=== PATIENT | male | born 1985 | race African-American/Black ===

== ENCOUNTER 2016-03-03 21:39 | Emergency (ER) | payer OTHER ==
[2016-03-03 22:15] VITALS: BP 118/66; PULSE 75; TEMP 98.3; BMI 26.3
[2016-03-03] MEDS ORDERED: IBUPROFEN 400 MG TABLET (FP) PO ONE ×2 (23:06→23:32)
[2016-03-03] MEDS ORDERED: OXYCODONE/APAP 5/325MG COMBO TABLET PO ONE (23:06)
[2016-03-03] MEDS ORDERED: OXYCODONE/APAP 5/325MG COMBO TABLET ONE (23:32)
--- NOTE | 2016-03-04 00:32 | PDOC ---
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 Patient reports hx chronic neck pain. Denies trauma, injury, fall or any other complaints at this time. Timing/Duration: other (Just prior to arrival) Severity: mild Modifying Factors: improves with: rest Associated Symptoms: denies: denies symptoms, chest pain, cough, diaphoresis, fever/chills, headaches, loss of appetite, malaise, nausea/vomiting, rash, seizure, shortness of breath, syncope, weakness, other Aspirin Received prior to arrival: No: no aspirin today, unknown, 81 mg x 1, 81 mg x 2, 81 mg x 3, 81 mg x 4, 325 mg x 1, provided at home, provided by EMS, provided by [facility] Contraindications(Core Measure): No: Allergy, Other, Active Blding w/i 24 hrs., Plavix, Receiving Warfarin Past History - Travel Traveled outside of the country in the last 30 days: No Close contact w/someone who was outside of country & ill: No - Past Medical History Allergies/Adverse Reactions: Allergies Allergy/AdvReac Type Severity Reaction Status Date / Time No Known Allergies Allergy Verified 03/03/16 22:11 Home Medications: Ambulatory Orders Ibuprofen [Motrin -] 600 mg PO TID #21 tablet 12/08/14 Ibuprofen [Motrin -] 600 mg PO Q6H PRN #20 tablet 03/04/16 Methocarbamol [Robaxin -] 500 mg PO Q6H PRN #20 tablet 03/04/16 Oxycodone HCl/Acetaminophen [Percocet 5-325 mg Tablet] 1 tab PO Q6H PRN #16 tablet MDD 4 tabs 03/04/16 Other medical history: Denies - Immunization History Immunization Up to Date: Yes - Psycho/Social/Smoking Cessation Hx Anxiety: No Suicidal Ideation: No Smoking History: Never smoked Have you smoked in the past 12 months: No Information on smoking cessation initiated: No Hx Alcohol Use: No Drug/Substance Use Hx: No Substance Use Type: Alcohol Review of Systems - Review of Systems Able to Perform ROS?: Yes Is the patient limited Angolan proficient: No Constitutional: No: Chills, Fever HEENTM: No: Blurred Vision, Double Vision Respiratory: No: Cough, Orthopnea, Shortness of Breath Cardiac (ROS): No: Chest Pain, Palpitations, Syncope, Chest Tightness ABD/GI: No: Constipated, Diarrhea, Nausea, Vomiting : No: Burning, Dysuria, Discharge, Flank Pain, Hematuria Musculoskeletal: Yes: Neck Pain. No: Back Pain Integumentary: No: Bruising, Rash, Sweating Neurological: No: Headache, Numbness, Paresthesia, Seizure, Tingling, Tremors, Weakness, Ataxia, Dizziness All Other Systems: Reviewed and Negative *Physical Exam - Vital Signs Last Vital Signs Temp Pulse Resp BP Pulse Ox 98.3 F 75 16 118/66 96 03/03/16 22:12 03/03/16 22:12 03/03/16 22:12 03/03/16 22:12 03/03/16 22:12 - Physical Exam General Appearance: Yes: Nourished, Appropriately Dressed. No: Apparent Distress, Mild Distress, Moderate Distress, Severe Distress HEENT: positive: EOMI, LEV, Normal Voice, Symmetrical Neck: positive: Trachea midline, Supple. negative: Decreased range of motion, Stridor, Lymphadenopathy (R), Lymphadenopathy (L) Respiratory/Chest: positive: Lungs Clear, Normal Breath Sounds. negative: Labored Respiration, Decreased Breath Sounds Cardiovascular: positive: Regular Rhythm, Regular Rate Gastrointestinal/Abdominal: positive: Normal Bowel Sounds, Soft Lymphatic: negative: Adenopathy Musculoskeletal: positive: Normal Inspection. 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[employer] II-XII NML intact, Fully Oriented, Alert, Normal Mood/ Affect, Normal Response, Motor Strength 5/5 ED Treatment Course - RADIOLOGY Radiology Studies Ordered: Category Date Time Status SPINE-CERVICAL [RAD] Stat Radiology 03/03/16 23:05 Taken - Medications Given in the ED: ED Medications Discontinued Medications Generic Name Dose Route Start Last Admin Trade Name Freq PRN Reason Stop Dose Admin Ibuprofen 800 mg 03/03/16 23:06 03/04/16 00:13 Motrin - PO 03/03/16 23:07 800 mg ONCE ONE Administration Oxycodone/Acetaminophen 1 combo 03/03/16 23:06 03/04/16 00:13 Percocet 5/325 - PO 03/03/16 23:07 1 combo ONCE ONE Administration *DC/Admit/Observation/Transfer Diagnosis at time of Disposition: Cervical pain (neck) - Discharge Dispostion Disposition: HOME Condition at time of disposition: Stable Admit: No - Prescriptions Prescriptions: Ibuprofen [Motrin -] 600 mg PO Q6H PRN #20 tablet PRN Reason: Mild Pain Oxycodone HCl/Acetaminophen [Percocet 5-325 mg Tablet] 1 tab PO Q6H PRN #16 tablet MDD 4 tabs PRN Reason: Severe Pain Methocarbamol [Robaxin -] 500 mg PO Q6H PRN #20 tablet PRN Reason: Neck pain - Referrals Referrals: STAFF,NOT ON [Primary Care Provider] - Dc Cote MD [Non Staff, Medical] - - Patient Instructions Printed Discharge Instructions: DI for Neck Pain Additional Instructions: FOLLOW UP WITH DR COTE OR YOUR PRIMARY CARE PROVIDER FOR FURTHER EVALUATION. APPLY WARM COMPRESS TO AFFECTED AREA NEEDED. TAKE MEDICATIONS PRESCRIBED. DO NOT DRIVE, DRINK ALCOHOL, OR OPERATE HEAVY MACHINERY WHILE TAKING PERCOCET. Print Language: LUX[place]BOURGISH - Post Discharge Activity Work/School Note: Back to Work
--- NOTE | 2016-03-04 01:15 | PDOC ---
*Physical Exam - Vital Signs Last Vital Signs Temp Pulse Resp BP Pulse Ox 98.3 F 75 16 118/66 96 03/03/16 22:12 03/03/16 22:12 03/03/16 22:12 03/03/16 22:12 03/03/16 22:12 ED Treatment Course - Medications Given in the ED: ED Medications Discontinued Medications Generic Name Dose Route Start Last Admin Trade Name Sanjuanita PRN Reason Stop Dose Admin Ibuprofen 800 mg 03/03/16 23:06 03/04/16 00:13 Motrin - PO 03/03/16 23:07 800 mg ONCE ONE Administration Oxycodone/Acetaminophen 1 combo 03/03/16 23:06 03/04/16 00:13 Percocet 5/325 - PO 03/03/16 23:07 1 combo ONCE ONE Administration Medical Decision Making - Medical Decision Making 03/04/16 01:15 agree with care from BRIDGET Paredes *DC/Admit/Observation/Transfer Diagnosis at time of Disposition: Cervical pain (neck) - Discharge Dispostion Disposition: HOME - Prescriptions Prescriptions: Ibuprofen [Motrin -] 600 mg PO Q6H PRN #20 tablet PRN Reason: Mild Pain Oxycodone HCl/Acetaminophen [Percocet 5-325 mg Tablet] 1 tab PO Q6H PRN #16 tablet MDD 4 tabs PRN Reason: Severe Pain Methocarbamol [Robaxin -] 500 mg PO Q6H PRN #20 tablet PRN Reason: Neck pain - Referrals Referrals: STAFF,NOT ON [Primary Care Provider] - Dc Cote MD [Non Staff, Medical] - - Patient Instructions Printed Discharge Instructions: DI for Neck Pain Additional Instructions: FOLLOW UP WITH DR COTE OR YOUR PRIMARY CARE PROVIDER FOR FURTHER EVALUATION. APPLY WARM COMPRESS TO AFFECTED AREA NEEDED. TAKE MEDICATIONS PRESCRIBED. DO NOT DRIVE, DRINK ALCOHOL, OR OPERATE HEAVY MACHINERY WHILE TAKING PERCOCET. Print Language: LEBANESE - Post Discharge Activity Work/School Note: Back to Work
== END 2016-03-04 01:37 | disposition home or self-care (01) ==
LOC: JER 21:39
DX: M54.2 Cervicalgia (principal); X50.0XXA Overexertion from strenuous movement or load, initial encounter; Y93.89 Activity, other specified; Y92.89 Other specified places as the place of occurrence of the external cause; Y99.0 Civilian activity done for income or pay
CPT/HCPCS: 72050-TC; 99282-25

== ENCOUNTER 2017-04-08 16:45 | Emergency (ER) | payer OTHER ==
[2017-04-08 17:09] VITALS: BP 120/69; PULSE 71; TEMP 97.9; BMI 25.6
--- NOTE | 2017-04-08 18:37 | PDOC ---
History of Present Illness - General Chief Complaint: Back Pain Stated Complaint: EVALUATION ( YFD) Time Seen by Provider: 04/08/17 17:38 Past History - Past Medical History Allergies/Adverse Reactions: Allergies Allergy/AdvReac Type Severity Reaction Status Date / Time No Known Allergies Allergy Verified 04/08/17 17:06 Home Medications: Ambulatory Orders Cyclobenzaprine HCl [Flexeril -] 10 mg PO HS #10 tablet 04/08/17 Ibuprofen 800 mg PO TID #30 tablet 04/08/17 COPD: No Other medical history: DENIES. - Immunization History Immunization Up to Date: Yes - Suicide/Smoking/Psychosocial Hx Smoking History: Never smoked Have you smoked in the past 12 months: No Hx Alcohol Use: No Drug/Substance Use Hx: No Substance Use Type: Alcohol *Physical Exam - Vital Signs Last Vital Signs Temp Pulse Resp BP Pulse Ox 97.9 F 71 19 120/69 99 04/08/17 17:06 04/08/17 17:06 04/08/17 17:06 04/08/17 17:06 04/08/17 17:06 *DC/Admit/Observation/Transfer Diagnosis at time of Disposition: Right-sided low back pain without sciatica Qualifiers: Chronicity: acute Qualified Code(s): M54.5 - Low back pain - Discharge Dispostion Disposition: HOME Condition at time of disposition: Stable Admit: No - Referrals Referrals: Chente Tyson MD [Primary Care Provider] - - Patient Instructions Printed Discharge Instructions: DI for Low Back Pain Additional Instructions: You have low back pain due to a muscle spasm. Please take ibuprofen 800 mg 3 times a day not to exceed 3000 mg a day. Take the medication before you go to bed. Do not drive after taking this medication as it may make you sleepy. You may use warm compresses on your back to help with her symptoms. Please follow- up with your primary care doctor. Return to the emergency department if you have worsening back pain, bladder or bowel incontinence, numbness and tingling in her legs, changes in the way you walk, or any new or worsening symptoms. - Post Discharge Activity Forms/Work/School Notes: Back to Work
== END 2017-04-08 19:04 | disposition home or self-care (01) ==
LOC: JERFT 16:45
DX: M62.830 Muscle spasm of back (principal); M54.5 Low back pain
CPT/HCPCS: 99281-25

== ENCOUNTER 2019-03-13 11:08 | Emergency (ER) | payer OTHER ==
[2019-03-13 11:18] VITALS: BP 103/66; PULSE 76; TEMP 98; BMI 26.2
--- NOTE | 2019-03-13 11:19 | PDOC ---
Rapid Medical Evaluation Time Seen by Provider: 03/13/19 11:18 Medical Evaluation: Allergies Allergy/AdvReac Type Severity Reaction Status Date / Time No Known Allergies Allergy Verified 04/08/17 17:06 03/13/19 11:18 Patient is 33M here today with L 4th digit pain. Injured opening door. Vitals normal and stable. Tender, no deformity. X-rays ordered. To fast track. Discharge Disposition - Diagnosis Finger pain, left - Discharge Dispostion Condition at time of disposition: Stable - Referrals - Patient Instructions - Post Discharge Activity
--- NOTE | 2019-03-13 12:46 | PDOC ---
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 Past History - Past Medical History Allergies/Adverse Reactions: Allergies Allergy/AdvReac Type Severity Reaction Status Date / Time No Known Allergies Allergy Verified 03/13/19 11:18 Home Medications: Ambulatory Orders Cyclobenzaprine HCl [Flexeril -] 10 mg PO HS #10 tablet 04/08/17 Ibuprofen 800 mg PO TID #30 tablet 04/08/17 COPD: No - Immunization History Immunization Up to Date: Yes - Psycho Social/Smoking Cessation Hx Smoking History: Never smoked Have you smoked in the past 12 months: No Hx Alcohol Use: No Drug/Substance Use Hx: No Substance Use Type: Alcohol Review of Systems - Review of Systems Musculoskeletal: Yes: Joint Pain *Physical Exam - Vital Signs Last Vital Signs Temp Pulse Resp BP Pulse Ox 98 F 76 18 103/66 99 03/13/19 11:15 03/13/19 11:15 03/13/19 11:15 03/13/19 11:15 03/13/19 11:15 - Physical Exam 03/13/19 12:45 Left fourth finger skin color and temperature are normal. There is some ecchymosis about the area of the skin overlying the A1 mohan of the left fourth finger and hand. Decreased range of motion actively in the left fourth finger in flexion at terminal range. FDS and FDP work independently. No instability or gross sensorimotor deficits. Tenderness about the A1 mohan neurovascularly intact no malrotation with passive motion to full flexion Medical Decision Making - Medical Decision Making 03/13/19 12:45 X-rays of the left fourth finger show no evidence of fracture trauma or destructive process. This may be a traumatic trigger finger. Roseline tape follow -up with Ortho hand Discharge - Discharge Information Problems reviewed: Yes Clinical Impression/Diagnosis: Finger pain, left, Finger sprain Condition: Stable Disposition: HOME - Admission No - Follow up/Referral Referrals: Aki Erazo MD [Staff Physician] - - Patient Discharge Instructions Additional Instructions: Please keep the fingers roseline taped for comfort and return to the emergency room for worsening symptoms. Tylenol and Motrin as directed for pain and swelling. Without fail follow-up with orthopedic hand surgery in 2 to 3 days for further evaluation and treatment options. - Post Discharge Activity Work/Back to School Note: Back to Work
== END 2019-03-13 12:50 | disposition home or self-care (01) ==
LOC: JERFT 11:08
DX: S63.635A Sprain of interphalangeal joint of left ring finger, initial encounter (principal); V86.91XA Unspecified occupant of ambulance or fire engine injured in nontraffic accident, initial encounter; Y93.89 Activity, other specified; Y92.89 Other specified places as the place of occurrence of the external cause; Y99.0 Civilian activity done for income or pay
CPT/HCPCS: 73140-TC-LT-FY; 99281-25

== ENCOUNTER 2020-07-16 11:24 | Day surgery (SDC) | payer BC, OTHER ==
[2020-07-16] MEDS ORDERED: ONDANSETRON 4 MG/2 ML VIAL IVPUSH ONE (12:04)
[2020-07-16] MEDS ORDERED: SODIUM CHLORIDE 1,000 ML IV STA ×2 (12:04→16:30)
[2020-07-16] MEDS ORDERED: morphine CARPU-JECT 4 MG/1 ML DISP.SYRIN IVPUSH ONE ×2 (12:05→14:59)
[2020-07-16] MEDS ORDERED: SODIUM PHOSPHATE/NA BIPHOS 133 ML ENEMA PR ONE ×2 (12:06→12:15)
[2020-07-16] MEDS ORDERED: morphine SULFATE 4 MG/ML VIAL ONE ×2 (12:30→15:09)
[2020-07-16] MEDS ORDERED: ONDANSETRON 4 MG/2 ML VIAL ONE (12:31)
[2020-07-16 13:10] LABS: BASO % 0.4 % (0-2.0); EOS % 0.1 % (0-4.5); HEMATOCRIT 46.3 % (35.4-49); LYMPH % 17.2 % (8-40); MCH 30.7 pg (25.7-33.7); MCHC 34.6 g/dl (32.0-35.9); MEAN CELL VOLUME 88.8 fl (80-96); MEAN PLT VOLUME 9.3 fl (7.5-11.1); MONO % 6.5 % (3.8-10.2); NEUT % 75.8 % (42.8-82.8); PLATELET COUNT 185 K/MM3 (134-434); RBC 5.21 M/mm3 (4.00-5.60); RDW 13.8 % (11.9-15.9); WHITE BLOOD COUNT 9.4 K/mm3 (4.0-10.0)
[2020-07-16 13:29] LABS: BLOOD UREA NITROGEN 20.9 mg/dL (7-18); CALCIUM 9.2 mg/dL (8.5-10.1)
[2020-07-16 13:30] LABS: ALBUMIN 4.4 g/dl (3.4-5.0)
[2020-07-16 13:33] LABS: CREATININE 1.6 mg/dL (0.55-1.3)
[2020-07-16 13:34] LABS: BILIRUBIN,TOTAL 1.2 mg/dL (0.2-1); TOT PROT 8.2 g/dl (6.4-8.2)
[2020-07-16] MEDS ORDERED: PIPERACILLIN/TAZOB 4.5 GM 4.5 GM in DEXTROSE 5%-WATER - 100 ML IVPB ONE (15:23)
[2020-07-16] MEDS ORDERED: ACETAMINOPHEN 1000 MG/100 ML VIAL (NON FORMULARY) IVPB ONE (16:28)
[2020-07-16 16:30] LABS: URINE APPEARANCE CLEAR; URINE BILIRUBIN NEGATIVE (NEGATIVE); URINE COLOR YELLOW; URINE GLUCOSE (UA) NEGATIVE (NEGATIVE); URINE KETONE TRACE (NEGATIVE); URINE LEUK ESTERASE NEGATIVE (NEGATIVE); URINE NITRITE NEGATIVE (NEGATIVE); URINE PROTEIN NEGATIVE (NEGATIVE)
[2020-07-16] MEDS ORDERED: PROPOFOL 20 ML ONE ×2 (16:33)
[2020-07-16] MEDS ORDERED: ROCURONIUM BROMIDE 50 MG/5 ML SYRINGE ONE (16:34)
[2020-07-16] MEDS ORDERED: MIDAZOLAM HCL 2 MG/2 ML SINGLE DOSE VIAL ONE (16:34)
[2020-07-16] MEDS ORDERED: ACETAMINOPHEN INJECTION 100 ML IVPB ONE (16:38)
[2020-07-16] MEDS ORDERED: PIPERACILLIN/TAZOB 3.375 GM 3.375 GM/50 ML BAG IVPB ONE (16:47)
[2020-07-16] MEDS ORDERED: ONDANSETRON 4 MG/2 ML VIAL IVPUSH PRN (17:13)
[2020-07-16] MEDS ORDERED: PROMETHAZINE HCL 25 MG/1 ML VIAL IVPUSH PRN ×2 (17:13→18:52)
[2020-07-16] MEDS ORDERED: oxyCODONE HCL 5 MG TABLET PO PRN (17:13)
[2020-07-16] MEDS ORDERED: BUPIVACAINE HCL 100 ML ONE (17:53)
[2020-07-16] MEDS ORDERED: BUPIVACAINE HCL/PF 0.5% (5 MG/ML) 30 ML VIAL IJ ONE (18:10)
[2020-07-16] MEDS ORDERED: NEOSTIGMINE METHYLSULFATE 0.5 MG/ML - 10 ML MDV ONE (18:14)
[2020-07-16] MEDS ORDERED: ACETAMINOPHEN 1000 MG/100 ML VIAL (NON FORMULARY) IVPB PRN (18:37)
[2020-07-16] MEDS ORDERED: LACTATED RINGERS SOLUTION 1,000 ML/1,000 ML INFUS.BAG IV SCH (19:00)
[2020-07-16] MEDS ORDERED: morphine SULFATE 4 MG/ML VIAL IVPUSH PRN ×2 (20:00)
[2020-07-16 22:32] VITALS: BMI 28.8
[2020-07-16] MEDS: SODIUM CHLORIDE 1,000 ML IV SCH (23:16)
[2020-07-16 23:54] LABS: INR 1.1 (0.83-1.09); PROTHROMBIN TIME (PATIENT) 13.5 SEC (9.7-13.0)
[2020-07-16 23:56] LABS: ACTIVATED PTT 30.6 SECONDS (25.2-36.5)
[2020-07-17] MEDS: SODIUM CHLORIDE 1,000 ML IV SCH (06:27)
[2020-07-17 09:00] LABS: BASO % 0.2 % (0-2.0); HEMATOCRIT 43.7 % (35.4-49); HEMOGLOBIN 15.1 GM/dL (11.7-16.9); LYMPH % 18.9 % (8-40); MCH 30.6 pg (25.7-33.7); MCHC 34.5 g/dl (32.0-35.9); MEAN CELL VOLUME 88.6 fl (80-96); MEAN PLT VOLUME 8.7 fl (7.5-11.1); MONO % 8.7 % (3.8-10.2); NEUT % 72.2 % (42.8-82.8); PLATELET COUNT 182 K/MM3 (134-434); RBC 4.94 M/mm3 (4.00-5.60); RDW 14.1 % (11.9-15.9); WHITE BLOOD COUNT 10.1 K/mm3 (4.0-10.0)
[2020-07-17 09:26] LABS: BLOOD UREA NITROGEN 13.5 mg/dL (7-18); CALCIUM 8.8 mg/dL (8.5-10.1)
[2020-07-17 09:27] LABS: ALBUMIN 3.7 g/dl (3.4-5.0); MAGNESIUM 2.2 mg/dL (1.8-2.4)
[2020-07-17 09:30] LABS: CREATININE 1.4 mg/dL (0.55-1.3); PHOSPHOROUS 3.5 mg/dL (2.5-4.9)
[2020-07-17 09:31] LABS: BILIRUBIN,TOTAL 1.4 mg/dL (0.2-1); TOT PROT 7.1 g/dl (6.4-8.2)
[2020-07-17 15:05] VITALS: TEMP 98.2
[2020-07-17 18:48] VITALS: BP 138/76; PULSE 68
== END 2020-07-17 19:08 | disposition home or self-care (01) ==
LOC: JER 11:24 → JERBED 15:43 → UNDOADMIN 15:43 → JASUSAT 15:43 → J8W 21:17 → JERBED 21:17 → JASUSAT 07-17 19:08
PROC: 0DTJ4ZZ Resection of Appendix, Percutaneous Endoscopic Approach (ICD-10-PCS; principal; 2020-07-16 17:00)
DX: K35.80 Unspecified acute appendicitis (principal)
CPT/HCPCS: 36415; 71045-TC-FY; 74177-TC; 80053; 81003; 83735; 84100; 85025; 85610; 85730; 86850; 86900; 86901; 87086; 88304-TC; 93005; 93010; 94760; 97116-GP; 97161-GP; 99285-25; C9803; J0131; Q9967; U0003; U0005

== ENCOUNTER 2021-06-20 00:36 | Emergency (ER) | payer OTHER ==
[2021-06-20 00:58] VITALS: BP 143/82; PULSE 70; TEMP 97.3; BMI 30.6
== END 2021-06-20 01:42 | disposition home or self-care (01) ==
LOC: JER 00:36
DX: S93.401A Sprain of unspecified ligament of right ankle, initial encounter (principal); S30.0XXA Contusion of lower back and pelvis, initial encounter; W10.9XXA Fall (on) (from) unspecified stairs and steps, initial encounter
CPT/HCPCS: 72170-TC-FY; 73610-TC-RT-FY; 73630-TC-RT-FY; 99284-25

== ENCOUNTER 2021-12-29 23:38 | Emergency (ER) | payer BC, OTHER ==
[2021-12-29 23:41] VITALS: BP 146/88; PULSE 71; RESP 17; TEMP 98.1; BMI 28.1
[2021-12-30] MEDS ORDERED: KETOROLAC TROMETHAMINE 30 MG/1 ML VIAL IM ONE
[2021-12-30] MEDS ORDERED: ACETAMINOPHEN/CAFFEINE/BUTALBITAL 1 TAB PO ONE
[2021-12-30] MEDS ORDERED: ACETAMINOPHEN/CAFFEINE/BUTALBITAL 1 TAB ONE (00:05)
[2021-12-30] MEDS ORDERED: KETOROLAC TROMETHAMINE 30 MG/1 ML VIAL ONE (00:05)
[2021-12-30] MEDS ORDERED: METOCLOPRAMIDE HCL 10 MG TABLET (FP) PO ONE ×2 (00:05)
== END 2021-12-30 01:48 | disposition home or self-care (01) ==
LOC: JER 23:38
PROC: 3E023GC Introduction of Other Therapeutic Substance into Muscle, Percutaneous Approach (ICD-10-PCS; principal; 2021-12-29)
DX: G43.909 Migraine, unspecified, not intractable, without status migrainosus (principal)
CPT/HCPCS: 70450-TC; 99284-25